=== PATIENT | female | born 1970 | race Caucasian/White ===

== ENCOUNTER 2017-05-03 12:47 | Emergency (ER) | payer MEDICAID ==
[~2017-05-03] VITALS: Ht 160 cm; Wt 59.0 kg
[~2017-05-03 12:47] MED LIST: APAP W/ CODEINE1 TAB PO; CIPRO 500MG TA500 MG PO; CLINDAMYCIN HC300 MG PO; FLEXERIL10 MG PO; IBU-8800 MG PO; K-DUR 20MEQ TA20 MEQ PO; LIBRIUM 10MG. C10 MG PO; LODINE400 MG PO; LORTAB 5/500 501 TAB PO; MOTRIN600 MG PO; NOMEDS; NORCO 325 MG-51 TAB PO; PHENERGAN 25MG.25 M1 PO
--- OUTSIDE RECORDS SUMMARY | 2017-05-03 12:54 | External Medical Summary Rpt | Continuity of Care Document ---
Author Author Organization Address Unknown Phone Unavailable Care Team Providers Care Drapery Worker Name Role Phone , Unavailable Unavailable EMS Current Medications Section EMS Allergies and Adverse Reactions EMS Past Medical History Medications Administered Section EMS Procedures Performed EMS Vital Signs EMS Patient Care Report Narrative DIRECT CALL IN FROM [facility] ER FOR A TRANSFER TO ER WITH MRS. JAUREGUI GOING FOR NEPHROLOGY DUE TO RENAL FAILURE THAT IS NOT AVAILABLE AT SENDING. IS THE CLOSET ACCEPTING FACILITY WITH BEDS AND SERVICES. PT REQUIRES TRANSPORT DUE TO CONTINUES CARDIAC, VITAL AND RESPIRATORY MONITORING DUE TO PT COMING INTO THE ER WITH AGONAL RESPIRATIONS. PT REQUIRES CONTINUES IV FLUIDS DUE TO BEING SEPTIC. UPON ARRIVAL TO SHE WAS LAYING IN ER BED 3T WITH FAMILY AT BEDSIDE. PT WAS 4-5-6, SKIN W/D, CLAUDIA, L/S C=. PT CO WEAKNESS. PT HAS A 22G IV IN RT ANKLE WITH NACL RUNING AT 200cc/HR, 22G LOCK RT FA AND OXYGEN AT 2LPM VIA NC. LOADED PT ONTO COT VIA DRAW SHEET AND SECURED TO COT. COVERED PT WITH WARM BLANKET FOR COMFORT. LOADED PT INTO THE AMBULANCE. OBTAINED V/S, INVESTMENT PROFESSIONAL - ST, CONTINUED IV FLUIDS/OXYGEN AND MONITORED PT EN ROUTE TO ER. TRANSPORT WITH OUT INCIDENT. NO CHANGE IN STATUS. REPORT AND CARE GIVEN TO JUNIOR PROJECT COORDINATOR. Michelle LUGO CCP.
--- OUTSIDE RECORDS SUMMARY | 2017-05-03 12:54 | External Medical Summary Rpt | Continuity of Care Document ---
Author Author Organization Address Unknown Phone Unavailable Care Team Providers Care Lock Stitch Channeler Name Role Phone , Unavailable Unavailable EMS Current Medications Section EMS Allergies and Adverse Reactions EMS Past Medical History Medications Administered Section EMS Procedures Performed EMS Vital Signs EMS Patient Care Report Narrative DIRECT CALL IN FROM [facility] ER FOR A TRANSFER TO ER WITH [...] LOADED PT INTO THE AMBULANCE. OBTAINED V/S, MOLD CAPPER HELPER - ST, CONTINUED IV FLUIDS/OXYGEN AND MONITORED PT EN ROUTE TO ER. TRANSPORT WITH OUT INCIDENT. NO CHANGE IN STATUS. REPORT AND CARE GIVEN TO CLIP WRAPPER. Michelle LUGO CCP.
--- OUTSIDE RECORDS SUMMARY | 2017-05-03 12:58 | External Medical Summary Rpt | CCD ---
Author Author , [facility] Organization [facility] Address Unknown Phone [email or web address] Purpose Continuity of Care Document - 04-05-2017 through 2016 Problems Code Diagnosis DOS Provider Status E87.2 ACIDOSIS F10.239 ALCOHOL DEPENDENCE WITH WITHDRAWAL, UNSPECIFIED K85.90 ACUTE PANCREATITI S WITHOUT NECROSIS OR INFECTION, UNSP N17.9 ACUTE KIDNEY FAILURE, UNSPECIFIED R11.10 VOMITING, UNSPECIFIED S30.0XXA CONTUSION OF LOWER BACK AND PELVIS, INITIAL ENCOUNTER S52.123A DISP FX OF HEAD OF UNSP RADIUS, INIT FOR CLOS FX S70.02XA CONTUSION OF LEFT HIP, INITIAL ENCOUNTER T07.XXXA UNSPECIFIED MULTIPLE INJURIES, INITIAL ENCOUNTER Results Labs Lab Lab Date Result Refere Interp Status Commen Order Detail nces retati t Range on Magnesium SerPl-mCnc (04-23-2017 04:38) Magnesi 2.1 1.9-2.4 complet um 017 mg/dL ed SerPl-m 04:38 Cnc Magnesium SerPl-mCnc (04-22-2017 04:00) Magnesi 1.8 1.9-2.4 complet um 017 mg/dL ed SerPl-m 04:00 Cnc Magnesium SerPl-mCnc (04-21-2017 06:26) Magnesi 2.0 1.9-2.4 complet um 017 mg/dL ed SerPl-m 06:26 Cnc [facility] PPP Electronics Research Engineer-aCnc (04-21-2017 06:26) [facility] PPP 0.62 complet 017 IU/mL ed Electronics Research Engineer-aC 06:26 nc GI path DNA+RNA Pnl Stl Non-probe PCR (04-20-2017 23:32) GI path COLI(ST complet 017 EC) ed DNA+RNA 23:32 Pnl Stl Non-pro be PCR GI path ENTEROT complet 017 OXIGENI ed DNA+RNA 23:32 C E. Pnl COLI Stl (ETEC), Non-pro be PCR SHIGA-L EVANGELIST TOXIN-P RODUCIN G E. GI path ENTEROA complet 017 GGREGAT ed DNA+RNA 23:32 KIRILL E. Pnl COLI Stl (EAEC), Non-pro be PCR ENTEROP ATHOGEN IC E. COLI (EPEC), GI path VIBRIO complet 017 SPECIES ed DNA+RNA 23:32 , Pnl VIBRIO Stl CHOLERA Non-pro E, be PCR YERSINI A ENTEROL ITICA, GI path CAMPYLO complet 017 BACTER ed DNA+RNA 23:32 SPECIES Pnl , Stl PLESIOM Non-pro ONAS be PCR SHIGELL OIDES, SALMONE LLA SPECIES , GI path ANALYTE complet 017 S ed DNA+RNA 23:32 INCLUDE Pnl : Stl Non-pro be PCR GI path REFEREN complet 017 CE ed DNA+RNA 23:32 VALUE: Pnl NEGATIV Stl E FOR Non-pro ALL be PCR ANALYTE S TESTED. GI path (NOTE) complet 017 ed DNA+RNA 23:32 Pnl Stl Non-pro be PCR GI path [id number] complet 017 09 ed DNA+RNA 23:32 negativ Pnl e Stl (qualif Non-pro ier be PCR value) SCT GINEG NEGATIV E FOR ALL ANALYTE S. NOTE: CLOSTRI DIUM DIFFICI LE TOXIN A/B WILL NO LONGER BE RESULTE D USING THIS PLATFOR M. PLEASE ORDER THE CLOSTRI DIUM DIFFICI LE BY PCR ASSAY IF CLINICA LLY INDICAT ED. L GI path 40/41, complet 017 ASTROVI ed DNA+RNA 23:32 SELVIN, Pnl NOROVIR Stl US Non-pro GI/GII, be PCR ROTAVIR US A, AND SAPOVIR US. GI path CAYETAN complet 017 ENSIS, ed DNA+RNA 23:32 ENTAMOE Pnl BA Stl HISTOLY Non-pro SIGIFREDO, be PCR GIARDIA LAMBLIA , ADENOVI SELVIN F GI path SHIGELL complet 017 A/ENTER ed DNA+RNA 23:32 OINVASI Pnl VE E. Stl COLI, Non-pro CRYPTOS be PCR PORIDIU M, CYCLOSP ORA Lactoferrin Stl Ql EIA (04-20-2017 23:32) FECAL LACTP complet LACTOFE 017 POSITIV ed RRIN 23:32 E FOR RESULT: FECAL LACTOFE RRIN L FECAL is a complet LACTOFE 017 breastf ed RRIN 23:32 ed RESULT: child, results may be falsely positiv e. FECAL Referen complet LACTOFE 017 ce ed RRIN 23:32 Range: RESULT: negativ e for Fecal Lactofe rrin. NOTE: If patient FECAL (NOTE) complet LACTOFE 017 ed RRIN 23:32 RESULT: [facility] PPP Electronics Research Engineer-aCnc (04-20-2017 20:35) [facility] PPP 0.58 complet 017 IU/mL ed Electronics Research Engineer-aC 20:35 nc U[facility] PPP Electronics Research Engineer-aCnc (04-20-2017 14:49) [facility] PPP 0.63 complet 017 IU/mL ed Electronics Research Engineer-aC 14:49 nc [facility] PPP Electronics Research Engineer-aCnc (04-20-2017 03:57) [facility] PPP 0.23 complet 017 IU/mL ed Electronics Research Engineer-aC 03:57 nc Magnesium SerPl-mCnc (04-20-2017 03:57) Magnesi 1.4 1.9-2.4 complet um 017 mg/dL ed SerPl-m 03:57 Cnc U[facility] PPP Electronics Research Engineer-aCnc (04-19-2017 20:01) [facility] PPP 0.29 complet 017 IU/mL ed Electronics Research Engineer-aC 20:01 nc UFH PPP Electronics Research Engineer-aCnc (04-19-2017 10:38) [facility] PPP 0.29 complet 017 IU/mL ed Electronics Research Engineer-aC 10:38 nc UFH PPP Electronics Research Engineer-aCnc (04-19-2017 02:57) [facility] PPP 0.27 complet 017 IU/mL ed Electronics Research Engineer-aC 02:57 nc UFH PPP Electronics Research Engineer-aCnc (04-18-2017 20:38) [facility] PPP 0.49 complet 017 IU/mL ed Electronics Research Engineer-aC 20:38 nc UFH PPP Electronics Research Engineer-aCnc (04-18-2017 14:02) [facility] PPP 0.26 complet 017 IU/mL ed Electronics Research Engineer-aC 14:02 nc UFH PPP Electronics Research Engineer-aCnc (04-18-2017 05:28) [facility] PPP 0.26 complet 017 IU/mL ed Electronics Research Engineer-aC 05:28 nc U[facility] PPP Electronics Research Engineer-aCnc (04-17-2017 16:47) [facility] PPP LE11 complet 017 <0.11 L ed Electronics Research Engineer-aC 16:47 IU/mL nc Gram Stn XXX (04-17-2017 15:31) GRAM [id number] complet STAIN 017 8 no ed 15:31 organis ms seen (findin g) SCT NOS NO ORGANIS MS SEEN L Bacteria Bifl Cult (04-17-2017 15:31) Bacteri [id number] complet a XXX 017 06 No ed Anaerob 15:31 growth e+Aerob (qualif e Cult ier value) SCT NG4 NO GROWTH DAY 4. L CC XXX NOTAP complet VC-aCnc 017 NOT ed 15:31 APPLICA BLE L SPECIME RCVD complet N 017 ORDER ed CONTAIN 15:31 PROCESS ER ED. L INFO: [facility] Electronics Research Engineer-aCnc (04-17-2017 09:06) [facility] 0.44 complet 017 IU/mL ed Electronics Research Engineer-aC 09:06 nc [facility] PPP Electronics Research Engineer-aCnc (04-17-2017 02:05) [facility] 017 IU/mL ed Electronics Research Engineer-aC 02:05 nc Potassium SerPl-sCnc (04-17-2017 02:05) Potassi DUP 3.7-4.8 complet um 017 DUPLICA ed SerPl-s 02:05 TE Cnc ORDER,C REDITED L mmol/L [facility] P[facility] Electronics Research Engineer-aCnc (04-16-2017 12:37) [facility] 017 Multipl ed Electronics Research Engineer-aC 12:37 e SCM nc orders. Tests consoli dated. L IU/mL Phosphate SerPl-mCnc (04-16-2017 12:37) Phospha 3.7 2.5-4.5 complet te 017 mg/dL ed SerPl-m 12:37 Cnc UFH PPP Electronics Research Engineer-aCnc (04-16-2017 12:37) UF PPP 0.34 complet 017 IU/mL ed Electronics Research Engineer-aC 12:37 nc Hemoccult Stl Ql (04-16-2017 10:50) OCCULT Referen complet BLOOD 017 ce ed 10:50 Range: negativ e for presenc e of occult blood OCCULT (NOTE) complet BLOOD 017 ed 10:50 OCCULT [id number] complet BLOOD 017 09 ed 10:50 fecal occult blood: positiv e (findin g) SCT GOBPOS POSITIV E L UF PPP Electronics Research Engineer-aCnc (04-16-2017 06:55) UF PPP 0.51 complet 017 IU/mL ed Electronics Research Engineer-aC 06:55 nc Folate SerPl-mCnc (04-16-2017 06:49) Folate 15.6 >4.8 complet SerPl-m 017 ng/mL ed Cnc 06:49 Vit B12 SerPl-mCnc (04-16-2017 06:49) Vit B12 1708 210-103 complet 017 pg/mL 3 ed SerPl-m 06:49 Cnc UF PPP Electronics Research Engineer-aCnc (04-16-2017 01:38) UF PPP 0.26 complet 017 IU/mL ed Electronics Research Engineer-aC 01:38 nc C dif Tox gens Stl Ql PCR (04-15-2017 18:02) CLOSTRI [id number] complet DIUM 017 00 not ed DIFFICI 18:02 detecte LE PCR d RESULT (qualif ier value) SCT CDNEG NEGATIV E for Clostri dium diffici le by PCR, no C. diffici le toxin B gene DNA detecte d. L [facility] PPP Electronics Research Engineer-aCnc (04-15-2017 18:02) [facility] PPP 0.54 complet 017 IU/mL ed Electronics Research Engineer-aC 18:02 nc UFH PPP Electronics Research Engineer-aCnc (04-15-2017 14:23) [facility] PPP LE11 complet 017 <0.11 L ed Electronics Research Engineer-aC 14:23 IU/mL nc UFH PPP Electronics Research Engineer-aCnc (04-15-2017 14:23) [facility] PPP TCON complet 017 Multipl ed Electronics Research Engineer-aC 14:23 e SCM nc orders. Tests consoli dated. L IU/mL GGT SerPl-cCnc (04-14-2017 08:54) GGT 450 U/L 7-36 complet SerPl-c 017 ed Cnc 08:54 Bilirub Direct SerPl-mCnc (04-14-2017 08:54) Bilirub 2.0 0.0-0.2 complet Direct 017 mg/dL ed 08:54 SerPl-m Cnc Phosphate SerPl-mCnc (04-13-2017 20:04) Phospha 1.8 2.5-4.5 complet te 017 mg/dL ed SerPl-m 20:04 Cnc MDRO Wnd (04-13-2017 12:30) Bacteri [id number] complet a XXX 017 06 No ed Anaerob 12:30 growth e+Aerob (qualif e Cult ier value) SCT NG1 NO GROWTH DAY 1. L CC XXX NOTAP complet VC-aCnc 017 NOT ed 12:30 APPLICA BLE L SPECIME RCVD complet N 017 ORDER ed CONTAIN 12:30 PROCESS ER ED. L INFO: Magnesium SerPl-mCnc (04-13-2017 02:15) Magnesi 1.7 1.9-2.4 complet um 017 mg/dL ed SerPl-m 02:15 Cnc Phosphate SerPl-mCnc (04-13-2017 02:15) Phospha 1.0 2.5-4.5 complet te 017 mg/dL ed SerPl-m 02:15 Cnc Lactate Bld-sCnc (04-12-2017 02:14) Lactate 1.3 complet 017 mmol/L ed Bld-sCn 02:14 c Hgb A1c MFr Bld (04-12-2017 02:14) Hgb A1c 5.0 % 4.7-6.0 complet MFr 017 ed Bld 02:14 Bacteria XXX Anaerobe+Aerobe Cult (04-11-2017 22:17) Bacteri [id number] complet a XXX 017 06 No ed Anaerob 22:17 growth e+Aerob (qualif e Cult ier value) SCT NGB6 NO GROWTH DAY 5. L SPECIME [id number] complet N 017 03 ed CONTAIN 22:17 blood ER volume INFO: estimat ion (proced ure) SCT BVA BLOOD CULTURE VOLUME ACCEPTA BLE L SPECIME FANB complet N 017 AEROBIC ed CONTAIN 22:17 FAN ER AND INFO: ANAEROB IC BLOOD CULTURE BOTTLES L Phosphate SerPl-mCnc (04-11-2017 01:58) Phospha 2.3 2.5-4.5 complet te 017 mg/dL ed SerPl-m 01:58 Cnc Lactate Bld-sCnc (04-11-2017 01:58) Lactate 2.3 complet 017 mmol/L ed Bld-sCn 01:58 c Magnesium SerPl-mCnc (04-11-2017 01:58) Magnesi 2.0 1.9-2.4 complet um 017 mg/dL ed SerPl-m 01:58 Cnc Bacteria Ur Cult (04-10-2017 20:47) Bacteri [id number] complet a XXX 017 06 No ed Anaerob 20:47 growth e+Aerob (qualif e Cult ier value) SCT NG1 NO GROWTH DAY 1. L CC XXX NOTAP complet VC-aCnc 017 NOT ed 20:47 APPLICA BLE L SPECIME URNG complet N 017 SHIELDS ed CONTAIN 20:47 TOP ER COLLECT INFO: ION TUBE FOR URINE L Lactate Bld-sCnc (04-10-2017 18:28) Lactate 1.5 complet 017 mmol/L ed Bld-sCn 18:28 c Bacteria XXX Anaerobe+Aerobe Cult (04-10-2017 17:51) Bacteri [id number] complet a XXX 017 06 No ed Anaerob 17:51 growth e+Aerob (qualif e Cult ier value) SCT NGB6 NO GROWTH DAY 5. L SPECIME [id number] complet N 017 03 ed CONTAIN 17:51 blood ER volume INFO: estimat ion (proced ure) SCT BVA BLOOD CULTURE VOLUME ACCEPTA BLE L SPECIME FANB complet N 017 AEROBIC ed CONTAIN 17:51 FAN ER AND INFO: ANAEROB IC BLOOD CULTURE BOTTLES L Bacteria Bro Nora Aerobe Cult (04-10-2017 17:51) Bacteri [id number] complet a XXX 017 6 ed Anaerob 17:51 Rhonda e+Aerob e Cult lusitan iae (organi sm) SCT CLUS RHONDA LUSITAN IAE L SPECIME RCVD complet N 017 ORDER ed CONTAIN 17:51 PROCESS ER ED. L INFO: Gram Stn XXX (04-10-2017 17:51) GRAM [id number] complet STAIN 017 9 ed 17:51 squamou s epithel ial cell (cell) SCT SQEPI SQUAMOU S EPITHEL IAL CELLS L GRAM [id number] complet STAIN 017 8 ed 17:51 monocyt e (cell) SCT MONOS MONONUC LEAR WHITE BLOOD CELLS L GRAM [id number] complet STAIN 017 6 ed 17:51 segment ed neutrop hil (cell) SCT PMN POLYMOR PHONUCL EAR WHITE BLOOD CELLS L Phosphate SerPl-mCnc (04-10-2017 09:29) Phospha 2.2 2.5-4.5 complet te 017 mg/dL ed SerPl-m 09:29 Cnc Magnesium SerPl-mCnc (04-10-2017 09:29) Magnesi 1.9 1.9-2.4 complet um 017 mg/dL ed SerPl-m 09:29 Cnc Ca-I Bld-mCnc (04-10-2017 09:29) Ca-I 4.7 4.6-5.1 complet Bld-mCn 017 mg/dL ed c 09:29 Ca-I Bld-mCnc (04-10-2017 06:20) Ca-I 4.7 4.6-5.1 complet Bld-mCn 017 mg/dL ed c 06:20 Ca-I Bld-mCnc (04-10-2017 04:23) Ca-I --2 4.7 4.6-5.1 complet Bld-mCn 017 mg/dL ed c 04:23 Magnesium SerPl-mCnc (04-10-2017 02:16) Magnesi --2 TCON 1.9-2.4 complet um 017 Multipl ed SerPl-m 02:16 e SCM Cnc orders. Tests consoli dated. L mg/dL Phosphate SerPl-mCnc (04-10-2017 02:16) Phospha 04-10-2 2.7 2.5-4.5 complet te 017 mg/dL ed SerPl-m 02:16 Cnc Lactate Bld-sCnc (04-10-2017 02:16) Lactate 1.2 complet 017 mmol/L ed Bld-sCn 02:16 c Ca-I Bld-mCnc (04-10-2017 02:16) Ca-I 04-10-2 4.7 4.6-5.1 complet Bld-mCn 017 mg/dL ed c 02:16 Phosphate SerPl-mCnc (04-10-2017 02:16) Phospha --2 TCON 2.5-4.5 complet te 017 Multipl ed SerPl-m 02:16 e SCM Cnc orders. Tests consoli dated. L mg/dL Magnesium SerPl-mCnc (04-10-2017 02:16) Magnesi 04-10-2 1.7 1.9-2.4 complet um 017 mg/dL ed SerPl-m 02:16 Cnc Ca-I Bld-mCnc (04-09-2017 21:46) Ca-I 11--2 4.6 4.6-5.1 complet Bld-mCn 017 mg/dL ed c 21:46 Ca-I Bld-mCnc (04-09-2017 17:51) Ca-I 11-02-2 4.6 4.6-5.1 complet Bld-mCn 017 mg/dL ed c 17:51 Ca-I Bld-mCnc (04-09-2017 16:16) Ca-I 11--2 4.7 4.6-5.1 complet Bld-mCn 017 mg/dL ed c 16:16 Ca-I Bld-mCnc (04-09-2017 11:34) Ca-I --2 4.6 4.6-5.1 complet Bld-mCn 017 mg/dL ed c 11:34 Ca-I Bld-mCnc (04-09-2017 08:10) Ca-I 04-09-2 4.6 4.6-5.1 complet Bld-mCn 017 mg/dL ed c 08:10 Ca-I Bld-mCnc (04-09-2017 07:50) Ca-I [id number] 4.6-5.1 complet Bld-mCn 017 2 ed c 07:50 clinica l laborat ory specime n rejecti on SCT NOCAP Test not perform ed, syringe cap fell off during transpo rt L mg/dL Phosphate SerPl-mCnc (04-09-2017 07:50) Phospha 2.6 2.5-4.5 complet te 017 mg/dL ed SerPl-m 07:50 Cnc Magnesium SerPl-mCnc (04-09-2017 07:50) Magnesi 2.0 1.9-2.4 complet um 017 mg/dL ed SerPl-m 07:50 Cnc Lactate Bld-sCnc (04-09-2017 05:52) Lactate 1.2 complet 017 mmol/L ed Bld-sCn 05:52 c Ca-I Bld-mCnc (04-09-2017 05:52) Ca-I 4.7 4.6-5.1 complet Bld-mCn 017 mg/dL ed c 05:52 Phosphate SerPl-mCnc (04-09-2017 03:18) Phospha 04-09- 2.7 2.5-4.5 complet te 017 mg/dL ed SerPl-m 03:18 Cnc Magnesium SerPl-mCnc (04-09-2017 03:18) Magnesi 04-09-2 2.0 1.9-2.4 complet um 017 mg/dL ed SerPl-m 03:18 Cnc Ca-I Bld-mCnc (04-09-2017 03:18) Ca-I 04-09-2 4.6 4.6-5.1 complet Bld-mCn 017 mg/dL ed c 03:18 Phosphate SerPl-mCnc (04-09-2017 02:01) Phospha 2.7 2.5-4.5 complet te 017 mg/dL ed SerPl-m 02:01 Cnc Ca-I Bld-mCnc (04-09-2017 02:01) Ca-I LOST 4.6-5.1 complet Bld-mCn 017 Specime ed c 02:01 n unaccep table for analysi s. Transpo rt to lab delayed by pneumat ic tube system. L mg/dL Magnesium SerPl-mCnc (04-09-2017 02:01) Magnesi TCON 1.9-2.4 complet um 017 Multipl ed SerPl-m 02:01 e SCM Cnc orders. Tests consoli dated. L mg/dL Magnesium SerPl-mCnc (04-09-2017 02:01) Magnesi 2.0 1.9-2.4 complet um 017 mg/dL ed SerPl-m 02:01 Cnc Phosphate SerPl-mCnc (04-09-2017 02:01) Phospha TCON 2.5-4.5 complet te 017 Multipl ed SerPl-m 02:01 e SCM Cnc orders. Tests consoli dated. L mg/dL Ca-I Bld-mCnc (04-08-2017 23:49) Ca-I 4.7 4.6-5.1 complet Bld-mCn 017 mg/dL ed c 23:49 Phosphate SerPl-mCnc (04-08-2017 21:37) Phospha 2.8 2.5-4.5 complet te 017 mg/dL ed SerPl-m 21:37 Cnc Magnesium SerPl-mCnc (04-08-2017 21:37) Magnesi 1.8 1.9-2.4 complet um 017 mg/dL ed SerPl-m 21:37 Cnc Ca-I Bld-mCnc (04-08-2017 21:37) Ca-I 4.6 4.6-5.1 complet Bld-mCn 017 mg/dL ed c 21:37 Ca-I Bld-mCnc (04-08-2017 19:46) Ca-I 11--2 4.6 4.6-5.1 complet Bld-mCn 017 mg/dL ed c 19:46 Ca-I Bld-mCnc (04-08-2017 18:22) Ca-I 11--2 4.1 4.6-5.1 complet Bld-mCn 017 mg/dL ed c 18:22 Ca-I Bld-mCnc (04-08-2017 14:19) Ca-I 11--2 4.6 4.6-5.1 complet Bld-mCn 017 mg/dL ed c 14:19 Ca-I Bld-mCnc (04-08-2017 12:20) Ca-I --2 4.7 4.6-5.1 complet Bld-mCn 017 mg/dL ed c 12:20 Phosphate SerPl-mCnc (04-08-2017 10:24) Phospha 04-08-2 2.7 2.5-4.5 complet te 017 mg/dL ed SerPl-m 10:24 Cnc Magnesium SerPl-mCnc (04-08-2017 10:24) Magnesi 04-08-2 1.9 1.9-2.4 complet um 017 mg/dL ed SerPl-m 10:24 Cnc Ca-I Bld-mCnc (04-08-2017 10:24) Ca-I 04-08-2 4.8 4.6-5.1 complet Bld-mCn 017 mg/dL ed c 10:24 Ca-I Bld-mCnc (04-08-2017 08:38) Ca-I 04-08-2 4.7 4.6-5.1 complet Bld-mCn 017 mg/dL ed c 08:38 Antibiotic sensitivity studies (04-08-2017 06:25) Piperac <= 4 complet illin/t 017 ug/ml ed azobact 06:25 am suscept ibility test by minimum inhibit ory concent ration Tobramy <= 1 complet rachell 017 ug/ml ed suscept 06:25 ibility test by minimum inhibit ory concent ration Trimeth 11-01-2 <= 20 complet oprim/s 017 ug/ml ed ulfamet 06:25 hoxazol e suscept ibility test by minimum inhibit ory concent ration Ampicil 2 <= 2 complet pricilla/sul 017 ug/ml ed bactam 06:25 suscept ibility test by minimum inhibit ory concent ration Levoflo 04-08-2 >= 8 complet xacin 017 ug/ml ed suscept 06:25 ibility test by minimum inhibit ory concent ration Imipene 2 <= 0.25 complet m 017 ug/ml ed suscept 06:25 ibility test by minimum inhibit ory concent ration Gentami 2 <= 1 complet rachell 017 ug/ml ed suscept 06:25 ibility test by minimum inhibit ory concent ration Nitrofu 2 <= 16 complet rantoin 017 ug/ml ed 06:25 suscept ibility test by minimum inhibit ory concent ration Cefepim 04-08-2 <= 1 complet e 017 ug/ml ed suscept 06:25 ibility test by minimum inhibit ory concent ration Ertapen 2 <= 0.5 complet em 017 ug/ml ed suscept 06:25 ibility test by minimum inhibit ory concent ration Extende = ug/ml complet d 017 ed spectru 06:25 m beta lactama se (ESBL) produci ng bacteri a suscept ibility test by minimum inhibit ory Cefazol 04-08-2 <= 4 complet in 017 ug/ml ed suscept 06:25 ibility test by minimum inhibit ory concent ration Ceftria 2 <= 1 complet xone 017 ug/ml ed suscept 06:25 ibility test by minimum inhibit ory concent ration Ceftazi 2 <= 1 complet dime/po 017 ug/ml ed tassium 06:25 clavula rosa suscept ibility test by minimum inhibit ory concent ration Amoxici 04-08-2 = 4 complet llin/cl 017 ug/ml ed avulana 06:25 te suscept ibility test by minimum inhibit ory concent ration Ampicil 2 <= 2 complet pricilla 017 ug/ml ed suscept 06:25 ibility test by minimum inhibit ory concent ration Antibiotic sensitivity studies (04-08-2017 06:25) Ampicil 04-08-2 = 4 complet pricilla/sul 017 ug/ml ed bactam 06:25 suscept ibility test by minimum inhibit ory concent ration Levoflo 2 <= 0.12 complet xacin 017 ug/ml ed suscept 06:25 ibility test by minimum inhibit ory concent ration Ampicil 2 = 8 complet pricilla 017 ug/ml ed suscept 06:25 ibility test by minimum inhibit ory concent ration Ca-I Bld-mCnc (04-08-2017 05:44) Ca-I 04-08-2 4.8 4.6-5.1 complet Bld-mCn 017 mg/dL ed c 05:44 Ca-I Bld-mCnc (04-08-2017 03:51) Ca-I 04-08-2 4.9 4.6-5.1 complet Bld-mCn 017 mg/dL ed c 03:51 Ca-I Bld-mCnc (04-08-2017 02:05) Ca-I 04-08-2 4.6 4.6-5.1 complet Bld-mCn 017 mg/dL ed c 02:05 Lactate Bld-sCnc (04-08-2017 02:05) Lactate 2.0 complet 017 mmol/L ed Bld-sCn 02:05 c Phosphate SerPl-mCnc (04-08-2017 02:05) Phospha 3.2 2.5-4.5 complet te 017 mg/dL ed SerPl-m 02:05 Cnc Magnesium SerPl-mCnc (04-08-2017 02:05) Magnesi 1.8 1.9-2.4 complet um 017 mg/dL ed SerPl-m 02:05 Cnc Phosphate SerPl-mCnc (04-07-2017 23:44) Phospha 3.0 2.5-4.5 complet te 017 mg/dL ed SerPl-m 23:44 Cnc Magnesium SerPl-mCnc (04-07-2017 23:44) Magnesi 1.7 1.9-2.4 complet um 017 mg/dL ed SerPl-m 23:44 Cnc Ca-I Bld-mCnc (04-07-2017 23:44) Ca-I 04-07- 4.5 4.6-5.1 complet Bld-mCn 017 mg/dL ed c 23:44 Ca-I Bld-mCnc (04-07-2017 22:08) Ca-I 04-07-2 4.3 4.6-5.1 complet Bld-mCn 017 mg/dL ed c 22:08 Ca-I Bld-mCnc (04-07-2017 20:20) Ca-I 04-07- 4.1 4.6-5.1 complet Bld-mCn 017 mg/dL ed c 20:20 Ca-I Bld-mCnc (04-07-2017 18:08) Ca-I 04-07- 4.1 4.6-5.1 complet Bld-mCn 017 mg/dL ed c 18:08 Lactate Bld-sCnc (04-07-2017 16:10) Lactate 2.0 complet 017 mmol/L ed Bld-sCn 16:10 c Ca-I Bld-mCnc (04-07-2017 16:10) Ca-I 4.3 4.6-5.1 complet Bld-mCn 017 mg/dL ed c 16:10 Phosphate SerPl-mCnc (04-07-2017 16:10) Phospha 1.7 2.5-4.5 complet te 017 mg/dL ed SerPl-m 16:10 Cnc Magnesium SerPl-mCnc (04-07-2017 16:10) Magnesi 1.8 1.9-2.4 complet um 017 mg/dL ed SerPl-m 16:10 Cnc Lactate Bld-sCnc (04-07-2017 16:10) Lactate TCON complet 017 Multipl ed Bld-sCn 16:10 e SCM c orders. Tests consoli dated. L mmol/L Ca-I SerPl ISE-sCnc (04-07-2017 11:44) Ca-I 3.8 4.6-5.1 complet SerPl 017 mg/dL ed ISE-sCn 11:44 c Phosphate SerPl-mCnc (04-07-2017 10:57) Phospha 1.6 2.5-4.5 complet te 017 mg/dL ed SerPl-m 10:57 Cnc Magnesium SerPl-mCnc (04-07-2017 10:57) Magnesi 2.0 1.9-2.4 complet um 017 mg/dL ed SerPl-m 10:57 Cnc CK SerPl-cCnc (04-07-2017 10:57) CK 61 U/L 37-168 complet SerPl-c 017 ed Cnc 10:57 Phosphate SerPl-mCnc (04-07-2017 04:26) Phospha 1.4 2.5-4.5 complet te 017 mg/dL ed SerPl-m 04:26 Cnc Magnesium SerPl-mCnc (04-07-2017 04:26) Magnesi 2.0 1.9-2.4 complet um 017 mg/dL ed SerPl-m 04:26 Cnc Ca-I SerPl ISE-sCnc (04-07-2017 02:31) Ca-I 3.7 4.6-5.1 complet SerPl 017 mg/dL ed ISE-sCn 02:31 c Phosphate SerPl-mCnc (04-06-2017 22:50) Phospha 1.7 2.5-4.5 complet te 017 mg/dL ed SerPl-m 22:50 Cnc Magnesium SerPl-mCnc (04-06-2017 22:50) Magnesi 2.1 1.9-2.4 complet um 017 mg/dL ed SerPl-m 22:50 Cnc Vancomycin SerPl-mCnc (04-06-2017 20:14) Vancomy 15.0 0-40.0 complet rachell 017 ug/mL ed SerPl-m 20:14 Cnc Lactate Bld-sCnc (04-06-2017 20:14) Lactate 3.5 complet 017 mmol/L ed Bld-sCn 20:14 c Phosphate SerPl-mCnc (04-06-2017 16:41) Phospha DUP 2.5-4.5 complet te 017 DUPLICA ed SerPl-m 16:41 TE Cnc ORDER,C REDITED L mg/dL Lactate Bld-sCnc (04-06-2017 16:41) Lactate 3.6 complet 017 mmol/L ed Bld-sCn 16:41 c Phosphate SerPl-mCnc (04-06-2017 16:41) Phospha 2.1 2.5-4.5 complet te 017 mg/dL ed SerPl-m 16:41 Cnc Magnesium SerPl-mCnc (04-06-2017 16:41) Magnesi 1.8 1.9-2.4 complet um 017 mg/dL ed SerPl-m 16:41 Cnc Sodium Ur-sCnc (04-06-2017 16:41) Sodium 85 complet Ur-sCnc 017 mmol/L ed 16:41 Creat Ur-mCnc (04-06-2017 16:41) Creat 92 complet Ur-mCnc 017 mg/dL ed 16:41 MDRO Wnd (04-06-2017 15:33) Bacteri [id number] complet a XXX 017 06 No ed Anaerob 15:33 growth e+Aerob (qualif e Cult ier value) SCT NG1 NO GROWTH DAY 1. L CC XXX NOTAP complet VC-aCnc 017 NOT ed 15:33 APPLICA BLE L SPECIME RCVD complet N 017 ORDER ed CONTAIN 15:33 PROCESS ER ED. L INFO: Magnesium SerPl-mCnc (04-06-2017 10:27) Magnesi 1.8 1.9-2.4 complet um 017 mg/dL ed SerPl-m 10:27 Cnc Lactate Bld-sCnc (04-06-2017 10:27) Lactate 3.5 complet 017 mmol/L ed Bld-sCn 10:27 c Phosphate SerPl-mCnc (04-06-2017 10:27) Phospha 1.1 2.5-4.5 complet te 017 mg/dL ed SerPl-m 10:27 Cnc Ca-I Bld-mCnc (04-06-2017 04:52) Ca-I TCON 4.6-5.1 complet Bld-mCn 017 Multipl ed c 04:52 e SCM orders. Tests consoli dated. L mg/dL Hct VFr Bld (04-06-2017 04:52) Hct VFr 31.2 % 34-45 complet Bld 017 ed 04:52 Lactate Bld-sCnc (04-06-2017 04:52) Lactate 3.0 complet 017 mmol/L ed Bld-sCn 04:52 c Ca-I Bld-mCnc (04-06-2017 04:52) Ca-I 3.8 4.6-5.1 complet Bld-mCn 017 mg/dL ed c 04:52 MDRO Wnd (04-06-2017 01:58) CC XXX NOTAP complet VC-aCnc 017 NOT ed 01:58 APPLICA BLE L SPECIME RCVD complet N 017 ORDER ed CONTAIN 01:58 PROCESS ER ED. L INFO: Bacteri [id number] complet a XXX 017 06 No ed Anaerob 01:58 growth e+Aerob (qualif e Cult ier value) SCT NG1 NO GROWTH DAY 1. L MRSA DNA XXX Ql PCR (04-06-2017 01:58) MRSA [id number] NEGATIV complet PCR 017 05 E for ed RESULT 01:58 analyte MRSA not DNA by detecte PCR, d SCT MRSA NOMRSA coloniz NEGATIV ation E for unlikel MRSA y. DNA by PCR, MRSA coloniz ation unlikel y. L MOLECUL Nares complet AR SPEC 017 (NARES) ed 01:58 DESCRIP TION MRSA BY [id number] complet PCR 017 05 ed 01:58 analyte not detecte d SCT NOMRSA NEGATIV E for MRSA DNA by PCR, MRSA coloniz ation unlikel y. L Phosphate SerPl-mCnc (04-06-2017 01:58) Phospha 1.6 2.5-4.5 complet te 017 mg/dL ed SerPl-m 01:58 Cnc Magnesium SerPl-mCnc (04-06-2017 01:58) Magnesi 1.8 1.9-2.4 complet um 017 mg/dL ed SerPl-m 01:58 Cnc Bacteria Ur Cult (04-05-2017 23:12) Bacteri [id number] complet a XXX 017 8 Gram ed Anaerob 23:12 negativ e+Aerob e e Cult bacillu s (organi sm) SCT GNR GRAM NEGATIV E HARRIET L CC XXX NOTAP complet VC-aCnc 017 NOT ed 23:12 APPLICA BLE L SPECIME URNG complet N 017 SHIELDS ed CONTAIN 23:12 TOP ER COLLECT INFO: ION TUBE FOR URINE L Lipase SerPl-cCnc (04-05-2017 23:12) Lipase 800 U/L 19-63 complet SerPl-c 017 ed Cnc 23:12 Phosphate SerPl-mCnc (04-05-2017 23:12) Phospha 1.6 2.5-4.5 complet te 017 mg/dL ed SerPl-m 23:12 Cnc Magnesium SerPl-mCnc (04-05-2017 23:12) Magnesi 2.3 1.9-2.4 complet um 017 mg/dL ed SerPl-m 23:12 Cnc Magnesium SerPl-mCnc (04-05-2017 23:12) Magnesi 2.4 1.9-2.4 complet um 017 mg/dL ed SerPl-m 23:12 Cnc Lactate Bld-sCnc (04-05-2017 23:12) Lactate 3.3 complet 017 mmol/L ed Bld-sCn 23:12 c C dif Tox gens Stl Ql PCR (04-05-2017 18:25) CLOSTRI CDCONF complet DIUM 017 Referre ed DIFFICI 18:25 d for LE PCR confirm RESULT atory testing , see CDEIA for final result. L GI path DNA+RNA Pnl Stl Non-probe PCR (04-05-2017 18:25) GI path 40/41, complet 017 ASTROVI ed DNA+RNA 18:25 SELVIN, Pnl NOROVIR Stl US Non-pro GI/GII, be PCR ROTAVIR US A, AND SAPOVIR US. GI path CAYETAN complet 017 ENSIS, ed DNA+RNA 18:25 ENTAMOE Pnl BA Stl HISTOLY Non-pro SIGIFREDO, be PCR GIARDIA LAMBLIA , ADENOVI SELVIN F GI path SHIGELL complet 017 A/ENTER ed DNA+RNA 18:25 OINVASI Pnl VE E. Stl COLI, Non-pro CRYPTOS be PCR PORIDIU M, CYCLOSP ORA GI path COLI(ST complet 017 EC) ed DNA+RNA 18:25 Pnl Stl Non-pro be PCR GI path ENTEROT complet 017 OXIGENI ed DNA+RNA 18:25 C E. Pnl COLI Stl (ETEC), Non-pro be PCR SHIGA-L EVANGELIST TOXIN-P RODUCIN G E. GI path ENTEROA complet 017 GGREGAT ed DNA+RNA 18:25 KIRILL E. Pnl COLI Stl (EAEC), Non-pro be PCR ENTEROP ATHOGEN IC E. COLI (EPEC), GI path VIBRIO complet 017 SPECIES ed DNA+RNA 18:25 , Pnl VIBRIO Stl CHOLERA Non-pro E, be PCR YERSINI A ENTEROL ITICA, GI path CAMPYLO complet 017 BACTER ed DNA+RNA 18:25 SPECIES Pnl , Stl PLESIOM Non-pro ONAS be PCR SHIGELL OIDES, SALMONE LLA SPECIES , GI path ANALYTE complet 017 S ed DNA+RNA 18:25 INCLUDE Pnl : Stl Non-pro be PCR GI path REFEREN complet 017 CE ed DNA+RNA 18:25 VALUE: Pnl NEGATIV Stl E FOR Non-pro ALL be PCR ANALYTE S TESTED. GI path (NOTE) complet 017 ed DNA+RNA 18:25 Pnl Stl Non-pro be PCR GI path [id number] complet 017 09 ed DNA+RNA 18:25 negativ Pnl e Stl (qualif Non-pro ier be PCR value) SCT GINEG NEGATIV E FOR ALL ANALYTE S. NOTE: CLOSTRI DIUM DIFFICI LE TOXIN A/B WILL NO LONGER BE RESULTE D USING THIS PLATFOR M. PLEASE ORDER THE CLOSTRI DIUM DIFFICI LE BY PCR ASSAY IF CLINICA LLY INDICAT ED. L Bacteria XXX Anaerobe+Aerobe Cult (04-05-2017 16:23) Bacteri [id number] complet a XXX 017 06 No ed Anaerob 16:23 growth e+Aerob (qualif e Cult ier value) SCT NGB6 NO GROWTH DAY 5. L SPECIME [id number] complet N 017 03 ed CONTAIN 16:23 blood ER volume INFO: estimat ion (proced ure) SCT BVA BLOOD CULTURE VOLUME ACCEPTA BLE L SPECIME FANB complet N 017 AEROBIC ed CONTAIN 16:23 FAN ER AND INFO: ANAEROB IC BLOOD CULTURE BOTTLES L Magnesium SerPl-mCnc (04-05-2017 16:04) Magnesi 1.6 1.9-2.4 complet um 017 mg/dL ed SerPl-m 16:04 Cnc Acetamin SerPl-mCnc (04-05-2017 16:04) Acetami < 15.0 10-30 complet n 017 ug/mL ed SerPl-m 16:04 Cnc TSH SerPl DL<=0.005 mIU/L-aCnc (04-05-2017 16:04) TSH 3.26 0.4-4.2 complet SerPl 017 uIU/mL ed DL<=0.0 16:04 05 mIU/L-a Cnc T4 Free SerPl-mCnc (04-05-2017 16:04) T4 Free 1.1 0.8-1.7 complet 017 ng/dL ed SerPl-m 16:04 Cnc CK SerPl-cCnc (04-05-2017 16:04) CK 171 U/L 37-168 complet SerPl-c 017 ed Cnc 16:04 Salicylates SerPl-sCnc (04-05-2017 16:04) Salicyl < 0.3 0-25.0 complet ates 017 mg/dL ed SerPl-s 16:04 Cnc Bacteria XXX Anaerobe+Aerobe Cult (04-05-2017 16:04) Bacteri [id number] complet a XXX 017 06 No ed Anaerob 16:04 growth e+Aerob (qualif e Cult ier value) SCT NGB6 NO GROWTH DAY 5. L SPECIME [id number] complet N 017 0 ed CONTAIN 16:04 decreas ER ed INFO: blood volume (findin g) SCT BVL SUBMITT ED BLOOD VOLUME WAS LOW L SPECIME FANB complet N 017 AEROBIC ed CONTAIN 16:04 FAN ER AND INFO: ANAEROB IC BLOOD CULTURE BOTTLES L Urine 9-analyte drugs of abuse screening (04-05-2017 12:59) Comment: Positive urine drug screen samples are stored for 7 days. Comment: Contact the Lab if confirmation of positives is needed. Urine NEGATIV <1000 complet ampheta 017 E ed mine 12:59 NEGATIV screeni E L ng test ng/mL Urine = <200 complet barbitu 017 NEGATIV ed rates 12:59 E ng/mL measure ment by screen Serum = 200 complet or 017 POSITIV ng/mL ed plasma 12:59 E ng/mL benzodi azepine s measure m Comment: This is an UNCONFIRMED result. This result is for medical Comment: purposes and/or treatment only. Cocaine = <300 complet 017 NEGATIV ed measure 12:59 E ng/g ment (mass/v olume) Methado = <300 complet ne 017 NEGATIV ed measure 12:59 E ng/mL ment (mass/v olume) Opiates = <300 complet 017 NEGATIV ed measure 12:59 E ng/mL ment (mass/v olume) Phencyc = <25 complet lidine 017 NEGATIV ed measure 12:59 E ng/mL ment (mass/v olume) 11-hydr NEGATIV <50 complet oxy 017 E ed delta-9 12:59 NEGATIV E L tetrahy ng/mL drocann abinol Urinalysis with microscopy (04-05-2017 12:59) Urine 10 - 20 O complet leukocy 017 ed scottie 12:59 wbc/hpf count (number /volume ) Urine 0.2 0.2 NEG complet urobili 017 L ed nogen 12:59 E.U./dL detecti on by test str [place] TNTC 0-5 complet s 017 TNTC L ed epithel 12:59 #/hpf ial cells detecti on in u Urine > = 1.005-1 complet specifi 017 1.030 .030 ed c 12:59 gravity measure ment Erythro 10-20 0 complet cytes 017 10-20 L ed detecti 12:59 on in rbc/hpf urine sedimen t Urine 2 + NEG complet protein 017 mg/dL ed 12:59 measure ment by automat ed t Urine = 5.5 5.0-8.5 complet pH 017 ed 12:59 Urine NEGATIV NEG complet nitrite 017 E ed 12:59 NEGATIV detecti E L on by test strip Mucus 1+ 1+ L NEG complet detecti 017 ed on in 12:59 urine sedimen t by lig Urine 1+ 1+ L NEG complet ketones 017 mg/dL ed 12:59 detecti on by automat ed scottie Hyaline 3-5 3-5 NONE complet casts 017 L ed detecti 12:59 #/lpf on in urine sedimen Glucose = NEG complet ur 017 NEGATIV ed test 12:59 E strip Urine DK YELLOW complet color 017 YELLOW ed 12:59 DK YELLOW L Urine 1+ 1+ L NEG complet blood 017 ed detecti 12:59 on Urine 2+ 2+ L NEG complet total 017 ed bilirub 12:59 in detecti on by test Comment: ICTOTEST: POSITIVE Bacteri 4+ 4+ L O complet a 017 ed detecti 12:59 on in urine sedimen t by Urine CLOUDY CLEAR complet appeara 017 CLOUDY ed nce 12:59 L determi nation Urine culture (04-05-2017 12:59) Urine [id number] complet culture 017 07 ed 12:59 Escheri danny coli SCT EC ESCHERI DNANY COLI L Drugs identified in Urine by Screen method (04-05-2017 12:59) Ampheta NEGATIV <1000 complet mine 017 E ed [Presen 12:59 ce] in Urine by Screen method 11-Hydr NEGATIV <50 complet oxy 017 E ed delta-9 12:59 tetrahy drocann abinol [Presen ce] in Unspeci fied specime n Activated partial thromboplastin time (a (04-05-2017 12:50) Activat = 29.3 23.6-34 complet ed 017 SECONDS .0 ed partial 12:50 thrombo plastin time (a Magnesium measurement (04-05-2017 12:50) Magnesi = 1.9 1.4-2.2 complet um 017 mg/dL ed measure 12:50 ment Cardiac enzymes (04-05-2017 12:50) Serum = 1.2 0-4.0 complet or 017 U/L ed plasma 12:50 creatin e kinase MB (CK-M Serum = 2.0 0.0-3.6 complet or 017 ng/mL ed plasma 12:50 creatin e kinase MB measu Serum = 162 26-192 complet or 017 U/L ed plasma 12:50 creatin e kinase measure m Serum = 0.06 0.00-0. complet or 017 ng/mL 06 ed plasma 12:50 troponi n i.cardi ac measu Comment: 0.04 - 0.49 IS AN INDETERMINANT ZONE Comment: And can be consistent with the following diseases: Comment: Comment: Trauma Critically ill patients [place] >30% TBSA Comment: CHF Hypothyroidism Amyloidosis Comment: Hypertension Myocarditis Sepsis Comment: Hypotension Rhabdomyolysis Vital exhaust. Comment: Postop surgery Pulmonary embolism CVA Comment: Renal failure Acute neurological disease Atrial fib. Differential panel, method unspecified - (04-05-2017 12:50) Blood = 100 complet total 017 #CELLS ed cell 12:50 count Blood 1+ 1+ L complet stomato 017 ed cytes 12:50 detecti on by light mi Neutrop = 82 % 42-76 complet hil 017 ed count 12:50 Platele NORMAL complet t 017 NORMAL ed estimat 12:50 L e Monocyt = 5 % 2-9 complet e % 017 ed 12:50 Manual = 3 % 0-1 complet blood 017 ed metamye 12:50 locytes /100 leukocy t Macrocy 1+ 1+ L complet scottie 017 ed detecti 12:50 on LYMPH 6 % 10-50 complet 017 ed 12:50 Automat = 4 % 0-8 complet ed 017 ed blood 12:50 band neutrop hil percent a CBC w auto diff (04-05-2017 12:50) Blood = 18.2 4.8-10. complet leukocy 017 K/MM3 8 ed scottie 12:50 count (number /volume ) Automat = 14.1 11.5-17 complet ed 017 % .5 ed erythro 12:50 cyte distrib ution width Red = 4.47 4.2-5.4 complet blood 017 M/mm3 ed cell 12:50 count Blood = 191 142-424 complet platele 017 K/mm3 ed t count 12:50 Automat = 8.8 7.4-10. complet ed 017 fl 4 ed blood 12:50 platele t mean volume tommie Beadle % = 4.7 % 1.7-9.3 complet 017 ed 12:50 Absolut = 0.8 0.1-1.0 complet e 017 K/mm3 ed monocyt 12:50 e count Automat = 102.7 82.2-97 complet ed 017 fl .8 ed erythro 12:50 cyte mean corpusc ular v Automat = 32.2 31.8-35 complet ed 017 g/dl .4 ed erythro 12:50 cyte mean corpusc ular h Mean = 33.1 27-31.2 complet corpusc 017 pg ed ular 12:50 hemoglo bin (MCH) determ Lymphoc = 7.2 % 10-50.0 complet yte 017 ed count, 12:50 blood, automat ed Absolut = 1.3 0.7-4.5 complet e 017 K/mm3 ed lymphoc 12:50 yte count Blood = 14.8 12.2-16 complet hemoglo 017 g/dL .2 ed bin 12:50 measure ment (mass/v olum Blood = 45.9 37.0-47 complet hematoc 017 % .0 ed rit 12:50 (volume fractio n) Granulo = 87.1 37.0-80 complet cyte 017 % .0 ed percent 12:50 age Blood = 15.8 1.8-7.8 complet granulo 017 K/mm3 ed cytes 12:50 automat ed count (numb Automat = 0.6 % 0.1-12. complet ed 017 0 ed blood 12:50 eosinop hils/10 0 leukocy t Automat = 0.1 0.0-0.4 complet ed 017 K/mm3 ed blood 12:50 eosinop hil count Baso % = 0.5 % 0.1-2.0 complet 017 ed 12:50 Automat = 0.1 0-0.2 complet ed 017 K/MM3 ed blood 12:50 basophi l count (count/ vo Blood lactic acid measurement (moles/vol (04-05-2017 12:50) Blood = 13.8 0.4-2.0 complet lactic 017 mmol/L ed acid 12:50 measure ment (moles/ vol Comment: CRITICAL RESULTS Comment: RESULTS CALLED TO: PATRIZIA 04/05/17 1336 Ledy Diaz Comment: An elevated Lactic Acid is suggestive of sepsis and should Comment: be repeated within 6 hours of initial testing. Ammonia measurement (04-05-2017 12:50) Ammonia = 26 19-54 complet 017 umoL/L ed measure 12:50 ment Lipase measurement (04-05-2017 12:50) Lipase = 22578 73-393 complet measure 017 U/L ed ment 12:50 Comprehensive metabolic panel (04-05-2017 12:50) Protein = 8.3 6.4-8.2 complet total 017 gm/dL ed ser/debbie 12:50 s ALT = 93 12-78 complet (SGPT) 017 U/L ed ser/debbie 12:50 s Serum = 272 15-37 complet or 017 U/L ed plasma 12:50 asparta te aminotr ansfera Serum = 131 136-145 complet sodium 017 mmoL/L ed measure 12:50 ment Serum = 2.4 3.5-5.1 complet potassi 017 mmoL/L ed um 12:50 measure ment Comment: CRITICAL RESULTS Comment: RESULTS CALLED TO: ANNA MARIEKEEGAN 04/05/17 1323 Ledy Diaz Serum = 124 74-106 complet or 017 mg/dL ed plasma 12:50 glucose measure ment (mas Serum = 4.3 1.3-3.2 complet globuli 017 gm/dL ed n 12:50 measure ment (mass/v olume) Estimat = 10 59- complet ed 017 ML/MIN ed glomeru 12:50 lar filtrat ion rate (GF Comment: REFERENCE RANGE: >60 ML/MIN/1.73 SQUARE METERS Comment: If this patient is -Chinese, then multiply the Comment: result by 1.210. Estimat = 15 50-200 complet ion of 017 ML/MIN ed creatin 12:50 ine renal clearan ce Serum = 4.5 0.55-1. complet or 017 mg/dL 02 ed plasma 12:50 creatin ine measure ment ( Carbon = 14 21.0-32 complet dioxide 017 mmoL/L .0 ed 12:50 measure ment Serum = 78 98-107 complet or 017 mmoL/L ed plasma 12:50 chlorid e measure ment (mo Serum = 8.6 8.5-10. complet or 017 mg/dL 1 ed plasma 12:50 calcium measure ment (mas Serum = 12 7-18 complet or 017 mg/dL ed plasma 12:50 urea nitroge n measure men Serum = 3.1 0.2-1.0 complet or 017 mg/dL ed plasma 12:50 total bilirub in measure m Serum = 188 46-116 complet or 017 U/L ed plasma 12:50 alkalin e phospha tase tommie Serum = 4.0 3.4-5.0 complet or 017 gm/dL ed plasma 12:50 albumin measure ment (mas Serum = 0.9 1.1-1.8 complet or 017 ed plasma 12:50 albumin /globul in mass ra Serum or plasma ethanol measurement (mas (04-05-2017 12:50) Serum = 0 0-99 complet or 017 mg/dL ed plasma 12:50 ethanol measure ment ([facility] Comment: ANY ALCOHOL > OR = 80 MG/DL IS CONSIDERED LEGALLY Comment: INTOXICATED UNDER [facility] LAW. Amylase ser/plas (04-05-2017 12:50) Amylase = 465 25-115 complet 017 U/L ed ser/debbie 12:50 s Comment: NOTIFICATION RESULT Comment: 04/05/17 1324 Ledy Diaz Differential panel, method unspecified - (04-05-2017 12:50) LYMPH 6 % 10% - Low complet 017 50% ed 12:50 Macrocy 1+ complet scottie 017 ed [Presen 12:50 ce] in Blood Platele NORMAL complet ts 017 ed [Presen 12:50 ce] in Blood by Light microsc opy Stomato 1+ complet cytes 017 ed [Presen 12:50 ce] in Blood by Light microsc opy Glucose capillary blood glucometer (04-05-2017 12:26) Glucose = 138 70-110 complet 017 mg/dl ed capilla 12:[address]
--- OUTSIDE RECORDS SUMMARY | 2017-05-03 12:58 | External Medical Summary Rpt | CCD ---
Author Author , ABBY Organization ABBY Address Unknown Phone [email or web address] Purpose Continuity of Care Document - 04-05-2017 [...] mg/dL ed SerPl-m 06:26 Cnc [facility] P[facility] [employer]-aCnc (04-21-2017 06:26) UFH PPP 0.62 complet 017 IU/mL ed [employer]-aC 06:26 nc GI path DNA+RNA Pnl Stl [...] Pnl Stl Non-pro be PCR GI path [id number] complet 017 09 ed DNA+RNA 23:32 negativ [...] 017 ed RRIN 23:32 RESULT: [facility] [employer]-aCnc (04-20-2017 20:35) UFH PPP 0.58 complet 017 IU/mL ed [employer]-aC 20:35 nc [facility] PPP [employer]-aCnc (04-20-2017 14:49) UFH PPP 0.63 complet 017 IU/mL ed [employer]-aC 14:49 nc [facility] PPP [employer]-a[facility]nc (04-20-2017 03:57) UFH PPP 0.23 complet 017 IU/mL ed [employer] 03:57 nc Magnesium SerPl-mCnc (04-20-2017 03:57) Magnesi 1.4 1.9-2.4 complet um 017 mg/dL ed SerPl-m 03:57 Cnc [facility] PPP [employer]nc (04-19-2017 20:01) UFH PPP 0.29 complet 017 IU/mL ed [employer] 20:01 nc UFH PPP [employer]nc (04-19-2017 10:38) UFH PPP 0.29 complet 017 IU/mL ed [employer] 10:38 nc [facility] PPP [employer]nc (04-19-2017 02:57) UFH PPP 0.27 complet 017 IU/mL ed [employer] 02:57 nc UFH PPP [employer]nc (04-18-2017 20:38) UF PPP 0.49 complet 017 IU/mL ed [employer] 20:38 nc UFH PPP [employer]nc (04-18-2017 14:02) UFH PPP 0.26 complet 017 IU/mL ed [employer] 14:02 nc UFH PPP [employer]nc (04-18-2017 05:28) UF PPP 0.26 complet 017 IU/mL ed [employer] 05:28 nc UFH PPP [employer]nc (04-17-2017 16:47) UF PPP LE11 complet 017 <0.11 L ed [employer] 16:47 IU/mL nc Gram Stn XXX (04-17-2017 15:31) GRAM [id number] complet STAIN 017 8 no ed 15:31 organis ms seen (findin g) SCT NOS NO ORGANIS MS SEEN L Bacteria Bifl Cult (04-17-2017 15:31) Bacteri [id number] complet a XXX 017 06 No ed Anaerob 15:31 growth e+Aerob (qualif e Cult ier value) SCT NG4 NO GROWTH DAY 4. L CC XXX NOTAP complet VC-aCnc 017 NOT ed 15:31 APPLICA BLE L SPECIME RCVD complet N 017 ORDER ed CONTAIN 15:31 PROCESS ER ED. L INFO: [facility] [employer]nc (04-17-2017 09:06) [facility] 0.44 complet 017 IU/mL ed [employer] 09:06 nc UFH PPP [employer]nc (04-17-2017 02:05) [facility]17 IU/mL ed [employer] 02:05 nc Potassium SerPl-sCnc (04-17-2017 02:05) Potassi DUP 3.7-4.8 complet um 017 DUPLICA ed SerPl-s 02:05 TE Cnc ORDER,C REDITED L mmol/L [facility] PPP [employer] (04-16-2017 12:37) [facility] TCON complet 017 Multipl ed [employer] 12:37 e SCM nc orders. Tests consoli dated. L IU/mL Phosphate SerPl-mCnc (04-16-2017 12:37) Phospha 3.7 2.5-4.5 complet te 017 mg/dL ed SerPl-m 12:37 Cnc UFH PPP [employer] (04-16-2017 12:37) UF PPP 0.34 complet 017 IU/mL ed [employer] 12:37 nc Hemoccult Stl Ql (04-16-2017 10:50) OCCULT Referen complet BLOOD 017 ce ed 10:50 Range: negativ e for presenc e of occult blood OCCULT (NOTE) complet BLOOD 017 ed 10:50 OCCULT [id number] complet BLOOD 017 09 ed 10:50 fecal occult blood: positiv e (findin g) SCT GOBPOS POSITIV E L UF PPP [employer] (04-16-2017 06:55) UF PPP 0.51 complet 017 IU/mL ed [employer] 06:55 nc Folate SerPl-mCnc (04-16-2017 06:49) Folate 15.6 >4.8 complet SerPl-m 017 ng/mL ed Cnc 06:49 Vit B12 SerPl-mCnc (04-16-2017 06:49) Vit B12 1708 210-103 complet 017 pg/mL 3 ed SerPl-m 06:49 Cnc UF PPP [employer] (04-16-2017 01:38) UF PPP 0.26 complet 017 IU/mL ed [employer] 01:38 nc C dif Tox gens Stl Ql PCR (04-15-2017 18:02) CLOSTRI [id number] complet DIUM 017 00 not ed DIFFICI 18:02 detecte LE PCR d RESULT (qualif ier value) SCT CDNEG NEGATIV E for Clostri dium diffici le by PCR, no C. diffici le toxin B gene DNA detecte d. L UFH PPP [employer] (04-15-2017 18:02) UFH PPP 0.54 complet 017 IU/mL ed [employer] 18:02 nc UFH PPP [employer] (04-15-2017 14:23) UFH PPP LE11 complet 017 <0.11 L ed [employer] 14:23 IU/mL nc UFH PPP [employer] (04-15-2017 14:23) UFH PPP TCON complet 017 Multipl ed [employer] 14:23 e SCM nc orders. Tests consoli dated. L IU/mL GGT SerPl-cCnc (04-14-2017 08:54) GGT 450 U/L 7-36 complet SerPl-c 017 ed Cnc 08:54 Bilirub Direct SerPl-mCnc (04-14-2017 08:54) Bilirub 2.0 0.0-0.2 complet Direct 017 mg/dL ed 08:54 SerPl-m Cnc Phosphate SerPl-mCnc (04-13-2017 20:04) Phospha 1.8 2.5-4.5 complet te 017 mg/dL ed SerPl-m 20:04 Cnc MDRO Wnd (04-13-2017 12:30) Bacteri [id number] complet a XXX 017 06 No ed [...] Bacteria XXX Anaerobe+Aerobe Cult (04-11-2017 22:17) Bacteri [id number] complet a XXX 017 06 No ed Anaerob 22:17 growth e+Aerob (qualif e Cult ier value) SCT NGB6 NO GROWTH DAY 5. L SPECIME [id number] complet N 017 03 ed CONTAIN 22:17 [...] Cnc Bacteria Ur Cult (04-10-2017 20:47) Bacteri [id number] complet a XXX 017 06 No ed [...] Bacteria XXX Anaerobe+Aerobe Cult (04-10-2017 17:51) Bacteri [id number] complet a XXX 017 06 No ed Anaerob 17:51 growth e+Aerob (qualif e Cult ier value) SCT NGB6 NO GROWTH DAY 5. L SPECIME [id number] complet N 017 03 ed CONTAIN 17:51 blood ER volume INFO: estimat ion (proced ure) SCT BVA BLOOD CULTURE VOLUME ACCEPTA BLE L SPECIME FANB complet N 017 AEROBIC ed CONTAIN 17:51 FAN ER AND INFO: ANAEROB IC BLOOD CULTURE BOTTLES L Bacteria Bro [place] Aerobe Cult (04-10-2017 17:51) Bacteri [id number] complet a XXX 017 6 ed Anaerob 17:51 Rhonda e+Aerob e Cult lusitan iae (organi sm) SCT CLUS RHONDA LUSITAN IAE L SPECIME RCVD complet N 017 ORDER ed CONTAIN 17:51 PROCESS ER ED. L INFO: Gram Stn XXX (04-10-2017 17:51) GRAM [id number] complet STAIN 017 9 ed 17:51 squamou s epithel ial cell (cell) SCT SQEPI SQUAMOU S EPITHEL IAL CELLS L GRAM [id number] complet STAIN 017 8 ed 17:51 monocyt e (cell) SCT MONOS MONONUC LEAR WHITE BLOOD CELLS L GRAM [id number] complet STAIN 017 6 ed 17:51 segment [...] c 08:10 Ca-I Bld-mCnc (04-09-2017 07:50) Ca-I [id number] 4.6-5.1 complet Bld-mCn 017 2 ed c [...] ed 16:41 MDRO Wnd (04-06-2017 15:33) Bacteri [id number] complet a XXX 017 06 No ed [...] 01:58 PROCESS ER ED. L INFO: Bacteri [id number] complet a XXX 017 06 No ed Anaerob 01:58 growth e+Aerob (qualif e Cult ier value) SCT NG1 NO GROWTH DAY 1. L MRSA DNA XXX Ql PCR (04-06-2017 01:58) MRSA [id number] NEGATIV complet PCR 017 05 E for ed RESULT 01:58 analyte MRSA not DNA by detecte PCR, d SCT MRSA NOMRSA coloniz NEGATIV ation E for unlikel MRSA y. DNA by PCR, MRSA coloniz ation unlikel y. L MOLECUL Nares complet AR SPEC 017 (NARES) ed 01:58 DESCRIP TION MRSA BY [id number] complet PCR 017 05 ed 01:58 analyte not detecte d SCT NOMRSA NEGATIV E for MRSA DNA by PCR, MRSA coloniz ation unlikel y. L Phosphate SerPl-mCnc (04-06-2017 01:58) Phospha 1.6 2.5-4.5 complet te 017 mg/dL ed SerPl-m 01:58 Cnc Magnesium SerPl-mCnc (04-06-2017 01:58) Magnesi 1.8 1.9-2.4 complet um 017 mg/dL ed SerPl-m 01:58 Cnc Bacteria Ur Cult (04-05-2017 23:12) Bacteri [id number] complet a XXX 017 8 Gram ed [...] Pnl Stl Non-pro be PCR GI path [id number] complet 017 09 ed DNA+RNA 18:25 negativ [...] Bacteria XXX Anaerobe+Aerobe Cult (04-05-2017 16:23) Bacteri [id number] complet a XXX 017 06 No ed Anaerob 16:23 growth e+Aerob (qualif e Cult ier value) SCT NGB6 NO GROWTH DAY 5. L SPECIME [id number] complet N 017 03 ed CONTAIN 16:23 [...] Bacteria XXX Anaerobe+Aerobe Cult (04-05-2017 16:04) Bacteri [id number] complet a XXX 017 06 No ed Anaerob 16:04 growth e+Aerob (qualif e Cult ier value) SCT NGB6 NO GROWTH DAY 5. L SPECIME [id number] complet N 017 0 ed CONTAIN 16:04 [...] determi nation Urine culture (04-05-2017 12:59) Urine [id number] complet culture 017 07 ed 12:59 Escheri danny coli SCT EC ESCHERI DANNY COLI L Drugs identified in Urine by [...] blood 12:50 platele t mean volume tommie [place] % = 4.7 % 1.7-9.3 complet 017 [...] ment Lipase measurement (04-05-2017 12:50) Lipase = 32329 73-393 complet measure 017 U/L ed ment [...] SQUARE METERS Comment: If this patient is -Pakistani, then multiply the Comment: result by 1.210. [...] mg/dL ed plasma 12:50 ethanol measure ment ([facility] Comment: ANY ALCOHOL > OR = 80 MG/DL IS CONSIDERED LEGALLY Comment: INTOXICATED UNDER [facility] LAW. Amylase ser/plas (04-05-2017 12:50) Amylase = [...]
--- NOTE | 2017-05-03 12:59 | Emergency Room Report ---
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 Clinical Suspician of Infection? Mental Status: Sepsis Risk: Have you (or family members/close friends) recently traveled outside the [place]? If Yes, where/when: Have you had exposure to infectious disease within the past month? TB? Other? Specify: Source patient, RN notes reviewed Exam Limitations no limitations Comment Pt reports she went into renal failure about 3 weeks ago at and had to have a tube put in her gallbladder to drain it. She was on Dialysis for 2 days and her kidney function came back. This occured because of Alcoholism and she used to drink 1/2 gallon of Vodka every 2 days. Now drinks only an occasional glass of wine. During that stay she also developed a blood clot in her left jugular vein from insertion of a port and she is currently taking Xarelto for blood thinning Cardiac Chest Pain Chest pain indicative of cardiac No ALLERGIES Coded Allergies: phenazopyridine (From AZO) (Intermediate, I-HIVES 04/26/15) History Medical History General CAD? No Angina: No MO: No Hypertension? No Hyperlipidemia? No CHF? No DVT? No PE? No COPD? No Asthma? No Anemia? No GERD? No Gastric ulcers? No GI Bleed? No Hernia? No Thyroid Problems? No Hypothyroidism? No CVA? No Seizures? No Diabetes? No Renal Insuffiency? No End Stage Renal Disease? No UTI? No Stones? No BPH? No GB Disease: No Nephritic Syndrome? No Asplenia? No Hepatitis? No Sickle Cell Disease? No Arthritis? No Migraines? No Cataracts? No Glaucoma? No MRSA? No HIV? No TB? No Anxiety? No Depression? No Cancer? No More? No Immunization Hx DT/Tetanus UNKNOWN Surgical Hx Previous Surgery?Y TONSILECTOMY URETHRA STRETCHED KNEE-RIGHT TUBAL, drain placed in gallbladder Social History Smoking Hx Packs/day 1 1/2 - 2 Packs Alcohol Alcohol: Yes Review of Systems All Other Systems Reviewed and Negative Constitutional see HPI Gastrointestinal see HPI Physical Exam Vital Signs Vital Signs Date Time Temp Pulse Resp B/P Pulse O2 O2 Flow FiO2 Ox Delivery Rate 05/03 1601 18 05/03 1510 99.3 119 16 138/86 98 05/03 1254 98.6 118 20 151/107 99 General Appearance ill appearing WF but in no acute distress Respiratory Status No: respiratory distress. 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 Yes Glen was queried for this patient? No Reason not queried - emergent pt cond=no time, Glen system downtime Results/Orders Laboratory Tests 05/03/17 1335: Lactic Acid 2.8 H 05/03/17 1335: Amylase 39, Lipase 186 05/03/17 1335: Sodium 129 L, Potassium 3.5, Chloride 95 L, Carbon Dioxide 21 L, BUN 6 L, Creatinine 1.5 H, Estimated Creat Clear 43 L, Estimated GFR (MDRD) 37 L, Glucose 144 H, Calcium 9.0, Total Bilirubin 0.7, AST 44 H, ALT 21, Alkaline Phosphatase 261 H, Total Protein 8.6 H, Albumin 2.6 L, Globulin 6.0 H, Albumin/Globulin Ratio 0.4 L, WBC 17.7 H, RBC 3.72 L, Hgb 11.1 L, Hct 34.0 L, MCV 91.4, RDW 15.3, Plt Count 603 H, MPV 6.8 L, Gran % 72.3, Gran # 12.8 H , Total Counted 100, Lymphocytes % 19.6, Monocytes % 5.9, Eosinophils % 1.8, Basophils % 0.4, Neutrophils 72, Band Neutrophils 1, Lymphocytes (Manual) 16, Lymphocytes # 3.5, Monocytes (Manual) 8, Monocytes # 1.1 H, Eosinophils # 0.3, Basophils # 0.1, Atypical Lymphocytes 3, Platelet Estimate SLIGHT INCREASE, PUBS MCHC 33.0, MCH 30.1 Current Medication Orders Sig/Carolyn Start time Last Medication Dose Route Stop Time Status Admin Morphine Sulfate 0 .STK-MED ONE 05/03 1554 DC .ROUTE Ondansetron HCl 0 .STK-MED ONE 05/03 1554 DC .ROUTE Sodium Chloride 50 ML .STK-MED ONE 05/03 1553 DC IV Sodium Chloride 100 ML .STK-MED ONE 11/26 1551 DC IV Piperacillin Sod/ 0 .STK-MED ONE 05/03 1550 DCr Tazobactam Sod .ROUTE Morphine Sulfate 4 MG ONCE ONE 05/03 1545 DC 05/03 IV 05/03 1546 1601 Ondansetron HCl 4 MG ONCE ONE 05/03 1545 DC 05/03 IV 05/03 1546 1600 Piperacillin Sod/ 3.375 GM ONCE ONE 05/03 1545 CKDr Tazobactam Sod IV 05/03 1614 Sodium Chloride 50 ML Sodium Chloride 1,000 ML .STK-MED ONE 05/03 1334 DC IV Sodium Chloride 10 ML PRN PRN 05/03 1330 AC IV 05/04 1326 Sodium Chloride 1,000 ML .Q10H 05/03 1330 AC 05/03 IV 05/04 0127 1558 Sodium Chloride 10 ML PRN PRN 05/03 1330 AC IV 05/04 1327 Orders Procedure Date/time Status DIET-NOTHING BY MOUTH 05/03 D Active DRUG ABUSE SCREEN (10) 05/03 1550 Active ALCOHOL 05/03 1550 Active CULTURE, BLOOD 05/03 1542 Active LIPASE 05/03 1538 Complete AMYLASE 05/03 1538 Complete LACTIC ACID FOLLOW UP 05/[address] ABD & PELVIS W/O CONTRAST 05/03 1337 Active DIFFERENTIAL-WBC 05/03 1335 Complete CULTURE, BLOOD 05/03 1333 Active LACTIC ACID 05/[address] ABD/PELVIS REQ 05/03 1328 Complete IV SALINE LOCK 05/03 1328 Active URINALYSIS/COMPLETE 05/03 1328 Active CBC WITH AUTO DIFF 05/03 1328 Complete CHEM 12 PROFILE 05/03 1328 Complete Departure Departure Time of Disposition 1546 Disposition DC/XFER from ER to [facility] Clinical Impression Primary Impression: Acute cholecystitis Secondary Impressions: Acute colitis Condition STABLE Referrals OSEAS TREVIÑO (PCP) Additional Instructions Being referred back to , to Dr. Marlene Peralta in the ED through the complaints coordinator. I spoke with Dr. Tay , [facility], and this pt is a medical problem, not a surgical problem Discharge Counseling Counseled pt/family regarding diagnosis, test results, medications/RX, follow up needs ED Critical Care Critical Care No If Critical Care minutes are documented, the time involved in the performance of seperately reportable procedures was not counted toward critical care time documented. I directly delivered medical care to this critically ill and/or injured patient. Timely evaluation and treatment was necessary to address the significant organ system(s) dysfunction present in this patient. at 1606
--- OUTSIDE RECORDS SUMMARY | 2017-05-03 12:59 | External Medical Summary Rpt ---
Author Author DANNIDYAN Edward, [employer]BB[employer] Organization [employer] Address Unknown Phone Unavailable Results Drugs identified in Urine by Screen method Observa Value Referen Units Interpr Notes Date tion ce etation Range Positive urine drug screen samples are stored for 7 days. Contact the Lab if confirmation of positives is needed. Ampheta NEGATIV <1000 ng/mL No No Apr 05 mine E informa informa 2017 [Presen tion in tion in 12:59 ce] in source source PM Urine data data by Screen method Barbitura <200 ng/mL No No Apr 05 scottie informati informati 2017 [Mass/vol on in on in 12:59 PM ume] in source source Urine by data data Screen method Benzodiaz 200 ng/mL ng/mL High This is Apr 05 epines an 2017 [Mass/vol UNCONFIRM 12:59 PM ume] in ED Serum or result. Plasma by This Screen result is method for medicalpu rposes and/or treatment only. Cocaine <300 ng/g No No Apr 05 [Mass/vol informati informati 2016 ume] in on in on in 12:59 PM Unspecifi source source ed data data specimen Methadone <300 ng/mL No No Apr 05 informati informati 2016 [Mass/vol on in on in 12:59 PM ume] in source source Unspecifi data data ed specimen Opiates <300 ng/mL No No Apr 05 [Mass/vol informati informati 2016 ume] in on in on in 12:59 PM Unspecifi source source ed data data specimen Phencycli <25 ng/mL No No Apr 05 dine informati informati 2016 [Mass/vol on in on in 12:59 PM ume] in source source Unspecifi data data ed specimen 11-Hydr NEGATIV <50 ng/mL No No Apr 05 oxy E informa informa 2017 delta-9 tion in tion in 12:59 source source PM tetrahy data data drocann abinol [Presen ce] in Unspeci fied specime n Activated partial thrombplastin time (aPTT) in Platelet poor plasma by Coagulation assay Observa Value Referen Units Interpr Notes Date tion ce etation Range IS PATIENT ON ANTICOAGULANTS? N Activated 23.6 - SECONDS Normal No Apr 05 partial 34.0 2016 thrombpla on in 12:50 PM stin time source (aPTT) data in Platelet poor plasma by Coagulati on assay CBC W Auto Differential panel in Blood Observa Value Referen Units Interpr Notes Date tion ce etation Range Basophils 0 - 0.2 K/MM3 Normal No Apr 052016 [#/volume on in 12:50 PM ] in source Blood by data Automated count Basophils 0.1 - 2.0 % Normal No Apr 05 /2016 leukocyte on in 12:50 PM s in source Blood by data Automated count Eosinophi 0.0 - 0.4 K/mm3 Normal No Apr 05 ls 2016 [#/volume on in 12:50 PM ] in source Blood by data Automated count Eosinophi 0.1 - % Normal No Apr 05 ls/100 12.0 2016 leukocyte on in 12:50 PM s in source Blood by data Automated count Granulocy 1.8 - 7.8 K/mm3 High No Apr 05 scottie 2016 [#/volume on in 12:50 PM ] in source Blood by data Automated count Granulocy 37.0 - % High No Apr 05 scottie/100 80.0 2016 leukocyte on in 12:50 PM s in source Blood by data Automated count Hematocri 37.0 - % Normal No Apr 05 t [Volume 47.0 2016 on in 12:50 PM Fraction] source of Blood data Hemoglobi 12.2 - g/dL Normal No Apr 05 n 16.2 2016 [Mass/vol on in 12:50 PM ume] in source Blood data Lymphocyt 0.7 - 4.5 K/mm3 Normal No Apr 05 es 2016 [#/volume on in 12:50 PM ] in source Unspecifi data ed specimen by Automated count Lymphocyt 10 - 50.0 % Low No Apr 05 es 2016 [#/volume on in 12:50 PM ] in source Unspecifi data ed specimen by Automated count Erythrocy 27 - 31.2 pg High No Apr 05 te mean 2016 corpuscul on in 12:50 PM ar source hemoglobi data n [Entitic mass] Erythrocy 31.8 - g/dl Normal No Apr 05 te mean 35.4 2016 corpuscul on in 12:50 PM ar source hemoglobi data n concentra tion [Mass/vol ume] by Automated count Erythrocy 82.2 - fl High No Apr 05 te mean 97.8 2016 corpuscul on in 12:50 PM ar volume source [Entitic data volume] by Automated count Monocytes 0.1 - 1.0 K/mm3 Normal No Apr 05 inform2016 [#/volume on in 12:50 PM ] in source Blood by data Automated count Monocytes 1.7 - 9.3 % Normal No Apr 05 / inform2016 leukocyte on in 12:50 PM s in source Blood by data Automated count Platelet 7.4 - fl Normal No Apr 05 mean 10.4 2016 volume on in 12:50 PM [Entitic source volume] data in Blood by Automated count Platelets 142 - 424 K/mm3 Normal No Apr 05 inform2016 [#/volume on in 12:50 PM ] in source Blood data Erythrocy 4.2 - 5.4 M/mm3 Normal No Apr 05 scottie inform2016 [#/volume on in 12:50 PM ] in source Amniotic data fluid Erythrocy 11.5 - % Normal No Apr 05 te 17.5 2016 distribut on in 12:50 PM ion width source [Entitic data volume] by Automated count Leukocyte 4.8 - K/MM3 High No Apr 05 s 10.8 2016 [#/volume on in 12:50 PM ] in source Blood data Differential panel, method unspecified - Observa Value Referen Units Interpr Notes Date tion ce etation Range Neutrophi 0 - 8 % Normal No Apr 05 ls.band informati 2017 form/100 on in 12:50 PM leukocyte source s in data Blood by Automated count LYMPH 6 10 - 50 % Low No Apr 05 inform2016 tion in 12:50 source PM data Macrocy 1+ No No No No Apr 05 scottie informa informa informa informa 2016 [Presen tion in tion in tion in tion in 12:50 ce] in source source source source PM Blood data data data data Metamyelo 0 - 1 % High No Apr 05 cytes/100 informati 2017 on in 12:50 PM leukocyte source s in data Blood by Manual count Monocytes 2 - 9 % Normal No Apr 05 inform2016 leukocyte on in 12:50 PM s in source Blood by data Automated count Platele NORMAL No No No No Apr 05 ts informa informa informa informa 2016 [Presen tion in tion in tion in tion in 12:50 ce] in source source source source PM Blood data data data data by Light microsc opy Neutrophi 42 - 76 % High No Apr 05 ls informati 2016 [#/volume on in 12:50 PM ] in source Blood by data Automated count Stomato 1+ No No No No Apr 05 cytes informa informa informa informa 2016 [Presen tion in tion in tion in tion in 12:50 ce] in source source source source PM Blood data data data data by Light microsc opy Cells No #CELLS No No Apr 05 Counted informati informati informati 2016 Total [#] on in on in on in 12:50 PM in Blood source source source data data data Ammonia [Mass/volume] in Unspecified specimen Observa Value Referen Units Interpr Notes Date ti ce etation Range Ammonia 19 - 54 umoL/L Normal No Apr 05 [Mass/vol informati 2016 ume] in on in 12:50 PM Unspecifi source ed data specimen Lactate [Moles/volume] in Blood Observa Value Referen Units Interpr Notes Date ti ce etation Range Lactate 0.4 - 2.0 mmol/L High Apr 05 [Moles/vo 2016 lume] in CRITICAL 12:50 PM Blood RESULTS RESU LTS CALLED TO: ANNA MARIE.CLA 04/05/17 1336 Burak Diaz elevated Lactic Acid is suggestiv e of sepsis and shouldbe repeated within 6 hours of initial testing. Ethanol [Mass/volume] in Serum or Plasma Observa Value Referen Units Interpr Notes Date tion ce etation Range Ethanol 0 - 99 mg/dL Normal ANY Apr 05 [Mass/vol ALCOHOL > 2017 ume] in OR = 80 12:50 PM Serum or MG/DL IS Plasma CONSIDERE D LEGALLYIN TOXICATED UNDER [place] [employer] LAW. Amylase [Enzymatic activity/volume] in Serum or Plasma Observa Value Referen Units Interpr Notes Date tion ce etation Range Amylase 25 - 115 U/L High Apr 05 [Enzymati alert NOTIFICAT 2016 c ION 12:50 PM activity/ RESULT volume] 04/05 in Serum /17 1324 or Plasma JamesLedy roemro Comprehensive metabolic 2000 panel in Serum or Plasma Observa Value Referen Units Interpr Notes Date tion ce etation Range Albumin/G 1.1 - 1.8 No Low No Apr 05 lobulin informati informati 2016 [Mass on in on in 12:50 PM ratio] in source source Serum or data data Plasma Albumin 3.4 - 5.0 gm/dL Normal No Apr 05 [Mass/vol informati 2016 ume] in on in 12:50 PM Serum or source Plasma data Alkaline 46 - 116 U/L High No Apr 05 phosphata informati 2016 se on in 12:50 PM [Enzymati source c data activity/ volume] in Serum or Plasma Bilirubin 0.2 - 1.0 mg/dL High No Apr 05 .total informati 2016 [Mass/vol on in 12:50 PM ume] in source Serum or data Plasma Urea 7 - 18 mg/dL Normal No Apr 05 nitrogen informati 2016 [Mass/vol on in 12:50 PM ume] in source Serum or data Plasma Calcium 8.5 - mg/dL Normal No Apr 05 [Mass/vol 10.1 informati 2016 ume] in on in 12:50 PM Serum or source Plasma data Chloride 98 - 107 mmoL/L Low No Apr 05 [Moles/vo informati 2016 lume] in on in 12:50 PM Serum or source Plasma data Carbon 21.0 - mmoL/L Low No Apr 05 dioxide, 32.0 informati 2016 total on in 12:50 PM [Moles/vo source lume] in data Serum or Plasma Creatinin 0.55 - mg/dL High No Apr 05 e 1.02 informati 2016 [Mass/vol on in 12:50 PM ume] in source Serum or data Plasma Creatinin 50 - 200 ML/MIN Low No Apr 05 e renal informati 2017 clearance on in 12:50 PM source predicted data by Cockcroft -Gault formula Estimated 59- ML/MIN Low alert REFERENCE Apr 05 RANGE: 2017 glomerula >60 12:50 PM r ML/MIN/1. filtratio 73 SQUARE n rate METERSIf (GF this patient is -A merican, then multiply theresult by 1.210. Globulin 1.3 - 3.2 gm/dL High No Apr 05 [Mass/vol informati 2016 ume] in on in 12:50 PM Serum source data Glucose 74 - 106 mg/dL High No Apr 05 [Mass/vol informati 2016 ume] in on in 12:50 PM Serum or source Plasma data Potassium 3.5 - 5.1 mmoL/L Low alert Apr 05 2017 [Moles/vo CRITICAL 12:50 PM lume] in RESULTS Serum or Plasma RESU LTS CALLED TO: KAM 04/05/17 1323 Cracraft, Ledy Sodium 136 - 145 mmoL/L Low No Apr 05 [Moles/vo informati 2017 lume] in on in 12:50 PM Serum or source Plasma data Aspartate 15 - 37 U/L High No Apr 05 inform 2017 aminotran on in 12:50 PM sferase source [Enzymati data c activity/ volume] in Serum or Plasma Alanine 12 - 78 U/L High No Apr 05 aminotran informati 2017 sferase on in 12:50 PM [Enzymati source c data activity/ volume] in Serum or Plasma Protein 6.4 - 8.2 gm/dL High No Apr 05 [Mass/vol informati 2016 ume] in on in 12:50 PM Serum or source Plasma data Lipase [Enzymatic activity/volume] in Serum or Plasma Observa Value Referen Units Interpr Notes Date tion ce etation Range Lipase 73 - 393 U/L High No Apr 05 [Enzymati informati 2017 c on in 12:50 PM activity/ source volume] data in Serum or Plasma Magnesium [Moles/volume] in Unspecified specimen Observa Value Referen Units Interpr Notes Date tion ce etation Range Magnesium 1.4 - 2.2 mg/dL Normal No Apr 05 inform2016 [Moles/vo on in 12:50 PM lume] in source Unspecifi data ed specimen Cardiac enzymes Observa Value Referen Units Interpr Notes Date tion ce etation Range Creatine 0 - 4.0 U/L Normal No Apr 05 kinase.MB informati 2016 /Creatine on in 12:50 PM source kinase.to data shaan [Ratio] in Serum or Plasma Creatine 0.0 - 3.6 ng/mL Normal No Apr 05 kinase.MB informati 2016 on in 12:50 PM [Mass/vol source ume] in data Serum or Plasma Creatine 26 - 192 U/L Normal No Apr 05 kinase informati 2016 [Enzymati on in 12:50 PM c source activity/ data volume] in Serum or Plasma Troponin 0.00 - ng/mL Normal 0.04 - Apr 05 I.cardiac 0.06 0.49 IS 2017 AN 12:50 PM [Mass/vol INDETERMI ume] in NANT Serum or ZONEAnd Plasma can be consisten t with the following diseases: Trauma Criticall y ill patients Bonner >30% TBSACHF Hypothyro idism Amyloidos isHyperte nsion Myocardit is SepsisHyp otension Rhabdomyo lysis Vital exhaust.P ostop surgery Pulmonary embolism CVARenal failure Acute neurologi delvin disease Atrial fib. Glucose [Mass/volume] in Capillary blood by Glucometer Observa Value Referen Units Interpr Notes Date tion ce etation Range Glucose 70 - 110 mg/dl High No Apr 05 [Mass/vol informati 2016 ume] in on in 12:26 PM Capillary source blood by data Glucomete r
--- OUTSIDE RECORDS SUMMARY | 2017-05-03 12:59 | External Medical Summary Rpt | CCD ---
Author Author , ABBY MORA Address Unknown Phone [email or web address] Immunization Name Date Rout CVX Reac Dose Comm Prov Is Faci e tion ent ider Refu lity Give sed n Tdap 10-3 115 999 Hist H149 No H149 , 1-20 ori Adso 06 al rbed Info rmat ion - Sour ce Unsp ecif ied
--- OUTSIDE RECORDS SUMMARY | 2017-05-03 12:59 | External Medical Summary Rpt | CCD ---
Author Author [employer] Organization [employer] Address Unknown Phone Unavailable Purpose Continuity of Care Document - through 2016
--- OUTSIDE RECORDS SUMMARY | 2017-05-03 12:59 | External Medical Summary Rpt | CCD ---
Author Author , ABBY MORA Address Unknown Phone [email or web address] Immunization Name Date Rout CVX Reac Dose Comm Prov Is Faci e tion ent ider Refu lity Give sed n Tdap 10-3 115 999 Hist H149 No H149 , 1-20 ori Adso 06 al rbed Info rmat ion - Sour ce Unsp ecif ied
--- OUTSIDE RECORDS SUMMARY | 2017-05-03 12:59 | External Medical Summary Rpt ---
Author Author DANNIDYAN Edward, ABBY [employer] Address Unknown Phone Unavailable [...] 1+ No No No No Apr 05 scottei informa informa informa informa 2016 [Presen tion [...] IS Plasma CONSIDERE D LEGALLYIN TOXICATED UNDER [place] [employer] LAW. Amylase [Enzymatic activity/volume] in Serum or Plasma Observa Value Referen Units Interpr Notes Date tion ce etation Range Amylase 25 - 115 U/L High Apr 05 [Enzymati alert NOTIFICAT 2016 c ION 12:50 PM activity/ RESULT volume] 04/05 in Serum /17 1324 or Plasma JamesLedy romero Comprehensive metabolic 2000 panel in Serum or [...]
[2017-05-03 13:50] LABS: LYMPH # 3.5 K/mm3 (0.7-4.5); LYMPH % 19.6 % (10-50.0)
[2017-05-03 13:54] LABS: HEMOGLOBIN 11.1 g/dL (12.2-16.2)
[2017-05-03 14:09] LABS: NEUTROPHILS 72 % (42-76)
[2017-05-03 16:31] LABS: URINE BILIRUBIN - DIPSTICK NEGATIVE (NEG); URINE BLOOD 1+ (NEG)
[2017-05-03 16:47] VITALS: BP 147/90
[2017-05-03 16:47] LABS: AMPHETAMINES/METAMPHETAMINES NEGATIVE ng/mL (<1000)
--- NOTE | 2017-05-04 05:20 | RADIOLOGY REPORT PS360 ---
CT ABD PELVIS W/O CONTRAST CLINICAL INDICATION: ABDOMINAL PAIN WITH DRAINAGE TUBE IN GALLBLADDER ORDERING PHYSICIAN: Rasta Bonds MD PATIENT AGE: 47 years COMPARISON: None TECHNIQUE: Axial images obtained with sagittal and coronal reformats. PROCEDURE: Oral Contrast: None IV Contrast: None . FINDINGS: No acute finding in the lung bases. There is a cholecystostomy tube present with some mild gallbladder wall thickening and or pericholecystic fluid. No obvious biliary dilatation. There may be some minimal fluid along the inferior tip of the liver. The spleen, adrenal glands, pancreas, and kidneys have an unremarkable appearance. No intestinal obstruction or free air. No evidence of appendicitis or diverticulitis. There is some mild wall thickening of the ascending colon and cecum. There is a 3 cm left ovarian cyst. There are scattered small rounded opacities in the subcutaneous region of the anterior abdominal wall and may related to recent injections. No acute bony anomalies. IMPRESSION: 1. Cholecystostomy tube present with some mild gallbladder wall thickening and/or pericholecystic fluid. 2. Mild wall thickening involving the cecum and ascending colon which may be due to colitis 3. 2.9 cm left ovarian cyst
== END 2017-05-03 16:48 | disposition short-term general hospital (02) ==
LOC: ER 12:47
PROVIDERS: General Practice
DX: K81.0 Acute cholecystitis (principal); K52.9 Noninfective gastroenteritis and colitis, unspecified; Z79.01 Long term (current) use of anticoagulants
CPT/HCPCS: J2405; J2543

== ENCOUNTER → 2017-05-08 | Outpatient (CLI) | payer MEDICAID ==
[2017-05-08 18:45] LABS: AMPHETAMINES/METAMPHETAMINES NEGATIVE ng/mL (<1000)
[2017-05-16 08:40] LABS: Alprazolam Negative (Cutoff=100); Benzodiazepines Positive ng/mL (Cutoff=100); Clonazepam Negative (Cutoff=100); Flurazepam Negative (Cutoff=100); Lorazepam Negative (Cutoff=100); Midazolam Negative (Cutoff=100); Temazepam Positive (.); Triazolam Negative (Cutoff=100)
== END ==
LOC: LAB 17:44
PROVIDERS: Nurse Practitioner Family
DX: Z79.899 Other long term (current) drug therapy (principal)
CPT/HCPCS: G0480